=== PATIENT | male | born 1950 | race Caucasian/White ===

== ENCOUNTER 2017-07-31 19:10 | Emergency (ER) | payer MEDICARE ==
[2017-07-31] MEDS ORDERED: Sodium Chloride 0.9% 1000 ML 1,000 ML ONE ×2 (19:38→21:19)
[2017-07-31] MEDS ORDERED: solu-MEDROL 125 MG IV ONE (19:51)
[2017-07-31] MEDS ORDERED: Sodium Chloride 0.9% 1000 ML 1,000 ML IV STA (19:51)
[2017-07-31] MEDS ORDERED: Zofran 4 MG/2 ML VIAL IV ONE (19:51)
[2017-07-31] MEDS ORDERED: solu-MEDROL 125 MG ONE (19:52)
[2017-07-31] MEDS ORDERED: Zofran 4 MG/2 ML VIAL ONE (19:52)
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
[2017-07-31 20:10] LABS: Mean Cell Volume 88.7 fl (78-100); Mean Corpuscular Hemoglobin 31.6 pg (26-32); Platelet Count 307 K/mm3 (150-450); Red Blood Count 5.94 M/mm3 (4.1-5.6); Red Cell Distribution Width 13.4 % (11.5-14.0); White Blood Count 23.7 K/mm3 (4.0-10.5)
[2017-07-31 20:45] LABS: ALBUMIN 3.8 g/dL (3.4-5.0); ANION GAP 26.5 MEQ/L (5-15); BILIRUBIN,TOTAL 0.6 mg/dL (0.2-1.0); Carbon Dioxide 16.3 mEq/L (21-32); Potassium 3.3 mEq/L (3.5-5.1); Total Protein 7.3 gm/dL (6.4-8.2)
[2017-07-31 21:34] LABS: Bilirubin NEGATIVE (NEGATIVE); Blood TRACE NON-HEM Ery/ul (0-5); COMPLETE URINE MICROSCOPIC? YES; Collection Type VOID; Glucose NEGATIVE (NEGATIVE); Leukocyte Esterase TRACE (NEGATIVE)
[2017-07-31 21:35] LABS: Bacteria FEW /HPF (NEGATIVE); WBC 0-2 /HPF (0-5)
[2017-07-31] MEDS ORDERED: BABY ASPIRIN 81 MG CHEW PO ONE (21:39)
[2017-07-31 22:03] LABS: BAND 13 % (0.0-2.0); Platelet Estimate NORMAL (NORMAL); Total Cells Counted 100
[2017-07-31 22:51] VITALS: BP 91/51; PULSE 98; O2SAT 98
[2017-08-01] MEDS ORDERED: BABY ASPIRIN 81 MG CHEW ONE (00:53)
[2017-08-01] MEDS ORDERED: Sodium Chloride 0.9% 1000 ML 1,000 ML IV STA (00:58)
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
== END 2017-07-31 22:03 | disposition short-term general hospital (02) ==
LOC: ED 19:10
DX: I21.4 Non-ST elevation (NSTEMI) myocardial infarction (principal); V47.5XXA Car driver injured in collision with fixed or stationary object in traffic accident, initial encounter; I44.7 Left bundle-branch block, unspecified; R21 Rash and other nonspecific skin eruption; T36.1X5A Adverse effect of cephalosporins and other beta-lactam antibiotics, initial encounter
CPT/HCPCS: 36000; 36415; 70450; 71010; 80053; 81000; 82272; 82962; 84484; 85025; 87040; 87086; 93005; 93041; 96360; 96361; 96374; 96375; 99285; J2405; J2930; A9270-GY

== ENCOUNTER 2018-12-25 06:24 | Day surgery (SDC) | payer MEDICARE, OTHER ==
[2018-12-25] MEDS ORDERED: DIPRIVAN 200 MG/20 ML IV ONE (06:25)
[2018-12-25] MEDS ORDERED: Ketamine HCl 50 MG/ML IJ ONE (06:25)
[2018-12-25] MEDS ORDERED: Lactated Ringers 1,000 ML IV SCH (06:30)
[2018-12-25 08:07] LABS: Hematocrit 46.8 % (42-50); Hemoglobin 16.3 gm/dl (12.5-18.0); Mean Cell Volume 91.4 fl (78-100); Mean Corpuscular Hemoglobin 31.8 pg (26-32); Mean Corpuscular Hgb Concent. 34.8 g/dl (32-36); Platelet Count 234 K/mm3 (150-450); Red Blood Count 5.12 M/mm3 (4.1-5.6); Red Cell Distribution Width 13.4 % (11.5-14.0); White Blood Count 8.8 K/mm3 (4.0-10.5)
[2018-12-25] MEDS ORDERED: Lactated Ringers 1,000 ML IV ONE (08:39)
[2018-12-25 08:43] LABS: ALBUMIN 4.1 g/dL (3.5-5.0); ALKALINE PHOSPHATASE 79 U/L (38-126); ANION GAP 11.7 MEQ/L (5-15); BLOOD UREA NITROGEN 16 mg/dL (9-20); CHLORIDE 108 mmol/L (98-107); Calcium 9.4 mg/dL (8.4-10.2); Carbon Dioxide 25 mmol/L (22-30); Cholesterol 187 mg/dL (50-200); Creatinine 1 0.97 mg/dL (0.66-1.25); Glucose 95 mg/dL (74-106); HDL CHOLESTEROL 55 mg/dL (40-60); LDL, DIRECT 106 mg/dL (30-100); Risk Ratio 3.4; SGOT/AST 30 U/L (17-59); SGPT/ALT 39 U/L (0-50); SODIUM 141 mmol/L (137-145); TRIGLYCERIDE 111 mg/dL (30-150); Total Protein 7.6 g/dL (6.3-8.2)
[2018-12-25 09:21] VITALS: BP 131/81; PULSE 65; O2SAT 95
--- NOTE | 2018-12-25 11:12 | OP ---
SURGERY DATE/TIME: 12/25/2018 0802 PREOPERATIVE DIAGNOSIS: Screening colonoscopy. POSTOPERATIVE DIAGNOSIS: Cecal polyp x2. PROCEDURE: Screening colonoscopy. SURGEON: Theo Antunez M.D. ANESTHESIA: MAC by Corbin King CRNA. ESTIMATED BLOOD LOSS: Minimal. SPECIMENS: Two hot forceps polypectomies from the cecal region. DESCRIPTION OF PROCEDURE: After informed written consent was obtained, the patient was taken to the endoscopy suite. He underwent monitored anesthesia and digital rectal exam showed normal sphincter tone and no internal lesions. The scope was inserted into the rectum and sequentially the entire colonic mucosa was traversed. The level of cecum was reached and verified with direct visualization of ileocecal valve. There were two small sessile polyps in the paracecal region which were removed with hot forceps in entirety. The entire lesion was removed. There was good hemostasis following removal. Upon withdrawal no other lesions were encountered. Prior to withdrawal retroflexion was performed and showed no internal lesions. The scope was removed and the patient was transferred to the recovery room in good condition.
== END 2018-12-25 09:33 | disposition home or self-care (01) ==
LOC: SDC 06:24
PROVIDERS: ATTEND Family Medicine
DX: Z12.11 Encounter for screening for malignant neoplasm of colon (principal); D12.0 Benign neoplasm of cecum; I10 Essential (primary) hypertension; E78.5 Hyperlipidemia, unspecified; E03.9 Hypothyroidism, unspecified
CPT/HCPCS: 36415; 80053; 80061; 83721; 84439; 84443; 85027; 88305; 99100; J2704